=== PATIENT | female | born 1975 | race American Indian/Alaskan Native ===

== ENCOUNTER 2016-11-14 09:21 | Emergency (ER) | payer SELFPAY ==
[2016-11-14] MEDS ORDERED: NORCO 7.5/325 PO ONE (14:17)
[2016-11-14] MEDS ORDERED: TORADOL IM ONE (14:17)
[2016-11-14] MEDS ORDERED: FLEXERIL PO ONE (14:17)
[2016-11-14 15:30] VITALS: BP 124/72
--- NOTE | 2016-11-14 15:33 | XRay Report ---
CERVICAL SPINE, 3 views: History: Neck pain. AP and lateral views of the cervical spine were obtained. There is anatomic alignment, and the disc spaces are well maintained. There is no evidence of fracture or subluxation. There is loss of the normal cervical lordotic curve suggestive of muscle spasm. The prevertebral soft tissues are within normal limits. IMPRESSION: Loss of cervical lordosis suggesting muscle spasm vs. variation in patient positioning. Clinical correlation is advised. Otherwise negative cervical spine.
--- NOTE | 2016-11-14 16:32 | Emergency Department Report ---
Entered by YASHIRA MCMAHON, acting as scribe for MARCIANO ROGERS PA. ED Neck Pain/Injury HPI - General Chief Complaint: Neck Pain/Injury Stated Complaint: STIFF NECK/PAIN Time Seen by Provider: 11/14/16 12:16 Source: patient Mode of arrival: Ambulatory Limitations: No Limitations - History of Present Illness Initial Comments: 41 year old with PMHx of asthma c/o of sharp left neck pain that started yesterday. Patient stated that she "slept on it wrong," after bedtime but denies trauma, falling, or injuries to the neck. Patient reports that she has been sleeping on an air mattress for the past 3 days. Pain is aggravated while ambulating and alleviated with nothing. She denies fever, chills, N/V, and SOB. Patient is not and LMP was 1 week ago. MD Complaint: neck pain Onset/Timin -: days(s) Place: home Severity: mild Severity scale (0 -10): 4 Quality: sharp Consistency: constant Improves With: none, remaining still Worsens With: movement of neck Context: turning/bending Associated Symptoms: denies: headache, fever, numbness, tingling, weakness, difficulty walking, swollen glands, nausea, vomiting Treatments Prior to Arrival: none - Related Data Previous Rx's Medication Instructions Recorded Last Taken Type Naproxen Sodium (Nf) [Anaprox Ds 550 mg PO BID #14 tablet 04/05/14 Unknown Rx (Nf)] Ketorolac [Toradol] 10 mg PO Q6H PRN #20 tablet 11/14/16 Unknown Rx methOCARBAMOL [Robaxin TAB] 500 mg PO BID #30 tab 11/14/16 Unknown Rx Allergies Allergy/AdvReac Type Severity Reaction Status Date / Time morphine AdvReac Vomiting Verified 11/14/16 09:29 ED Review of Systems Comment: All other systems reviewed and negative Constitutional: denies: chills, diaphoresis, fever, weakness Eyes: denies: eye pain, eye discharge ENT: denies: ear pain, throat pain, dental pain Respiratory: denies: cough, shortness of breath, wheezing Cardiovascular: denies: chest pain, palpitations Endocrine: denies: excessive sweating Gastrointestinal: denies: abdominal pain, nausea, vomiting Genitourinary: denies: urgency, dysuria Musculoskeletal: arthralgia (left sided neck pain). denies: back pain, joint swelling Skin: denies: rash, lesions Neurological: denies: headache, weakness, numbness, paresthesias, confusion, abnormal gait, vertigo Psychiatric: denies: anxiety, depression Hematological/Lymphatic: denies: easy bleeding ED Past Medical Hx - Past Medical History Previous Medical History?: Yes Hx Asthma: Yes - Surgical History Past Surgical History?: Yes Additional Surgical History: Left Fallopian Tube Removed - Social History Smoking Status: Never Smoker Substance Use Type: None - Medications Home Medications: Home Medications Medication Instructions Recorded Confirmed Last Taken Type Naproxen Sodium (Nf) [Anaprox Ds 550 mg PO BID #14 tablet 04/05/14 Unknown Rx (Nf)] Ketorolac [Toradol] 10 mg PO Q6H PRN #20 tablet 11/14/16 Unknown Rx methOCARBAMOL [Robaxin TAB] 500 mg PO BID #30 tab 11/14/16 Unknown Rx ED Physical Exam - General Limitations: No Limitations General appearance: alert, in no apparent distress - Head Head exam: Present: atraumatic, normocephalic - Eye Eye exam: Present: normal appearance, PERRL, EOMI Pupils: Present: normal accommodation - ENT ENT exam: Present: normal exam, normal orophraynx, mucous membranes moist, normal external ear exam - Neck Neck exam: Present: normal inspection, tenderness (left sided tenderness). Absent: meningismus, full ROM, lymphadenopathy (left neck), thyromegaly - Respiratory Respiratory exam: Present: normal lung sounds bilaterally. Absent: respiratory distress, wheezes (ROM limited by pain), stridor - Cardiovascular Cardiovascular Exam: Present: regular rate, normal rhythm, normal heart sounds - GI/Abdominal GI/Abdominal exam: Present: soft, normal bowel sounds. Absent: distended, tenderness, guarding - Extremities Exam Extremities exam: Present: normal inspection, full ROM - Back Exam Back exam: Present: normal inspection, full ROM. Absent: tenderness - Neurological Exam Neurological exam: Present: alert, oriented X3, normal gait - Psychiatric Psychiatric exam: Present: normal affect, normal mood - Skin Skin exam: Present: warm, dry, intact, normal color. Absent: rash ED Course Vital Signs 11/14/16 11/14/16 09:30 15:29 Temperature 98.1 F 98.5 F Pulse Rate 81 67 Respiratory 20 18 Rate Blood Pressure 107/72 Blood Pressure 124/72 [Left] O2 Sat by Pulse 100 100 Oximetry ED Medical Decision Making - Radiology Data Radiology results: report reviewed xr cspine loss of cervical lordosis suggesting muscle spasm. - Medical Decision Making 41 year old female presents to ED with neck pain after sleeping. patient denies n/v, fever, trauma, headache, LOC, syncope. patient has observed ambulatory normal gait. ED Disposition Clinical Impression: Neck muscle spasm Disposition: DC-01 TO HOME OR SELFCARE Is pt being admited?: No Does the pt Need Aspirin: No Condition: Stable Instructions: Muscle Spasm (ED) Prescriptions: Ketorolac [Toradol] 10 mg PO Q6H PRN #20 tablet PRN Reason: Pain methOCARBAMOL [Robaxin TAB] 500 mg PO BID #30 tab Referrals: PRIMARY CARE, [Primary Care Provider] - 3-5 Days Forms: Work/School Release Form(ED) This documentation as recorded by the LISANDRO cary PEARL,accurately reflects the service I personally performed and the decisions made by ,MARCIANO ROGERS PA.
== END 2016-11-14 15:57 | disposition home or self-care (01) ==
LOC: ED 09:21
DX: M54.2 Cervicalgia (principal); M62.838 Other muscle spasm; J45.909 Unspecified asthma, uncomplicated; Z88.5 Allergy status to narcotic agent; X50.1XXA Overexertion from prolonged static or awkward postures, initial encounter; Y93.89 Activity, other specified; Y99.8 Other external cause status; Y92.89 Other specified places as the place of occurrence of the external cause
CPT/HCPCS: 72040; 81025; 96372; 99284; J1885

== ENCOUNTER 2017-01-04 21:07 | Emergency (ER) | payer SELFPAY ==
[2017-01-04 21:18] VITALS: BP 107/73
[2017-01-04] MEDS ORDERED: NARCAN 0.4 MG/1 ML ONE (22:50)
[2017-01-04] MEDS ORDERED: ZOFRAN ONE (22:53)
== END 2017-01-04 21:30 | disposition left against medical advice (07) ==
LOC: ED 21:07
DX: M54.9 Dorsalgia, unspecified (principal); Z53.21 Procedure and treatment not carried out due to patient leaving prior to being seen by health care provider
CPT/HCPCS: J2310; J2405

== ENCOUNTER 2017-04-06 11:11 | Emergency (ER) | payer OTHER ==
[2017-04-06 12:05] LABS: Basophils % (Auto) 0.4 % (0.0-1.8); Hematocrit 40.8 % (30.3-42.9); Mean Corpuscular HGB Conc 34 % (30-34); Mean Corpuscular Hemoglobin 32 pg (28-32); Mean Corpuscular Volume 92 fl (79-97); Platelet Count 392 K/mm3 (140-440); Red Blood Count 4.42 M/mm3 (3.65-5.03); Red Cell Distribution Width 14.2 % (13.2-15.2); White Blood Count 12.1 K/mm3 (4.5-11.0)
[2017-04-06 12:15] LABS: Alanine Aminotransferase 9 units/L (7-56); Albumin 4.6 g/dL (3.9-5); Albumin/Globulin Ratio 1.2 %; Alkaline Phosphatase 71 units/L (35-129); Anion Gap 20 mmol/L; BUN/Creatinine Ratio 10; Blood Urea Nitrogen 8 mg/dL (7-17); Calcium 10.1 mg/dL (8.4-10.2); Carbon Dioxide 26 mmol/L (22-30); Chloride 96.7 mmol/L (98-107); Glucose 120 mg/dL (65-100); Lipase 18 units/L (13-60); Potassium 3.3 mmol/L (3.6-5.0); Sodium 139 mmol/L (137-145); Total Protein 8.5 g/dL (6.3-8.2)
[2017-04-06 13:39] LABS: Bacteria,Urine 1+ /HPF (Negative); Mucus,Urine 2+ /HPF
[2017-04-06] MEDS ORDERED: ZOFRAN IV ONE (13:39)
[2017-04-06] MEDS ORDERED: DILAUDID IV ONE (13:40)
[2017-04-06] MEDS ORDERED: NACL 0.9% 1000 ML 1,000 ML IV ONE (13:40)
[2017-04-06 13:47] LABS: Bilirubin,Urine NEG (Negative); Blood,Urine SM (Negative); Ketones,Urine TR mg/dL (Negative); Leukocyte Esterase,Urine SM (Negative); Nitrite,Urine NEG (Negative); Urobilinogen,Urine < 2.0 mg/dL (<2.0)
[2017-04-06] MEDS ORDERED: NACL ONE ×2 (14:19→15:31)
--- NOTE | 2017-04-06 14:49 | Emergency Department Report ---
ED Abdominal Pain HPI - General Chief Complaint: Chest Pain Stated Complaint: CHEST PAIN Time Seen by Provider: 04/06/17 13:43 Source: patient Mode of arrival: Ambulatory Limitations: No Limitations - History of Present Illness Initial Comments: 42-year-old female presents with complaint of worsening abdominal pain 3 days. Patient is visibly distressed clutching her stomach states that she has not had a bowel movement in 3 days. Denies dysuria denies fever or chills does state that she has been nauseous and vomiting. Patient is awake alert and oriented 3. Patient also states she has had chest pain which is slightly worse when she takes a deep breath. Patient denies current palpitations but does state that her heart feels like it is racing. Denies being on control denies any history of PE. Denies dysuria or increased urinary frequency. MD Complaint: abdominal pain Onset/Timin -: days(s) Location: periumbilical, epigastric Radiation: epigastric, suprapubic Migration to: epigastric, suprapubic Severity: severe Severity scale (0 -10): 10 Quality: stabbing, aching, fullness, sharp Consistency: constant Worsens With: eating Associated Symptoms: nausea, vomiting, other (constipation) - Related Data LMP (females 10-50): this week Previous Rx's Medication Instructions Recorded Last Taken Type Naproxen Sodium (Nf) [Anaprox Ds 550 mg PO BID #14 tablet 04/05/14 Unknown Rx (Nf)] Ketorolac [Toradol] 10 mg PO Q6H PRN #20 tablet 11/14/16 Unknown Rx methOCARBAMOL [Robaxin TAB] 500 mg PO BID #30 tab 11/14/16 Unknown Rx Docusate Sodium [Colace] 100 mg PO BID PRN #16 capsule 04/06/17 Unknown Rx Magnesium Citrate [Citrate of 300 ml PO NOW #1 bottle 04/06/17 Unknown Rx Magnesia] Ondansetron [Zofran Odt] 4 mg PO Q8H PRN #10 tab.rapdis 04/06/17 Unknown Rx Allergies Allergy/AdvReac Type Severity Reaction Status Date / Time morphine AdvReac Vomiting Verified 11/14/16 09:29 ED Review of Systems ROS: Stated complaint: CHEST PAIN Other details as noted in HPI Constitutional: denies: chills, fever Eyes: denies: eye pain, eye discharge, vision change ENT: denies: ear pain, throat pain Respiratory: denies: cough, shortness of breath, wheezing Cardiovascular: chest pain (chest pain intermittently 3 days). denies: palpitations Endocrine: no symptoms reported Gastrointestinal: abdominal pain, constipation (3 days). denies: nausea, diarrhea Genitourinary: denies: urgency, dysuria, discharge Musculoskeletal: denies: back pain, joint swelling, arthralgia Skin: denies: rash, lesions Neurological: denies: headache, weakness, paresthesias Psychiatric: denies: anxiety, depression Hematological/Lymphatic: denies: easy bleeding, easy bruising ED Past Medical Hx - Past Medical History Hx Asthma: Yes - Surgical History Additional Surgical History: Left Fallopian Tube Removed - Social History Smoking Status: Never Smoker Substance Use Type: None - Medications Home Medications: Home Medications Medication Instructions Recorded Confirmed Last Taken Type Naproxen Sodium (Nf) [Anaprox Ds 550 mg PO BID #14 tablet 04/05/14 Unknown Rx (Nf)] Ketorolac [Toradol] 10 mg PO Q6H PRN #20 tablet 11/14/16 Unknown Rx methOCARBAMOL [Robaxin TAB] 500 mg PO BID #30 tab 11/14/16 Unknown Rx Docusate Sodium [Colace] 100 mg PO BID PRN #16 capsule 04/06/17 Unknown Rx Magnesium Citrate [Citrate of 300 ml PO NOW #1 bottle 04/06/17 Unknown Rx Magnesia] Ondansetron [Zofran Odt] 4 mg PO Q8H PRN #10 tab.rapdis 04/06/17 Unknown Rx ED Physical Exam - General Limitations: No Limitations General appearance: alert, in no apparent distress - Head Head exam: Present: atraumatic, normocephalic - Eye Eye exam: Present: normal appearance, PERRL, EOMI - ENT ENT exam: Present: mucous membranes moist - Neck Neck exam: Present: normal inspection - Respiratory Respiratory exam: Present: normal lung sounds bilaterally. Absent: respiratory distress - Cardiovascular Cardiovascular Exam: Present: regular rate, normal rhythm. Absent: systolic murmur, diastolic murmur, rubs, gallop - GI/Abdominal GI/Abdominal exam: Present: tenderness (some reproducible epigastric tenderness on palpation enzo-umbilical region), normal bowel sounds - Extremities Exam Extremities exam: Present: normal inspection - Back Exam Back exam: Present: normal inspection - Neurological Exam Neurological exam: Present: alert, oriented X3, CN II-XII intact, normal gait - Psychiatric Psychiatric exam: Present: normal affect, normal mood - Skin Skin exam: Present: warm, dry, intact, normal color. Absent: rash ED Course Vital Signs 04/06/17 04/06/17 04/06/17 11:28 13:45 17:59 Temperature 98.6 F Pulse Rate 114 H 81 Respiratory 18 18 Rate Blood Pressure 125/88 Blood Pressure 127/84 [Right] O2 Sat by Pulse 100 96 Oximetry ED Medical Decision Making - Lab Data Result diagrams: 04/06/17 11:43 04/06/17 11:43 - Medical Decision Making A/P: Chest pain, abdominal pain 1-CT Angio chest, CT abdomen and pelvis 2-d-dimer positive 3-EKG sinus 4- case reviewed and patient discharged by Dr. Sosa Critical care attestation.: If time is entered above; I have spent that time in minutes in the direct care of this critically ill patient, excluding procedure time. ED Disposition Clinical Impression: Chest pain Qualifiers: Chest pain type: unspecified Qualified Code(s): R07.9 - Chest pain, unspecified Abdominal pain Qualifiers: Abdominal location: upper abdomen, unspecified Qualified Code(s): R10.10 - Upper abdominal pain, unspecified Nausea & vomiting Qualifiers: Vomiting type: unspecified Vomiting Intractability: non-intractable Qualified Code(s): R11.2 - Nausea with vomiting, unspecified Constipation Qualifiers: Constipation type: unspecified constipation type Qualified Code(s): K59.00 - Constipation, unspecified Fibroid uterus Qualifiers: Uterine leiomyoma location: unspecified location Qualified Code(s): D25.9 - Leiomyoma of uterus, unspecified Ovarian cyst Qualifiers: Laterality: right Qualified Code(s): N83.201 - Unspecified ovarian cyst, right side Disposition: LEFT AGAINST MED ADVICE Is pt being admited?: No Does the pt Need Aspirin: No Condition: Stable Instructions: Chest Pain (ED), Ovarian Cyst (ED), Uterine Fibroids (ED), Constipation (ED), Acute Nausea and Vomiting (ED) Additional Instructions: Please follow up with a primary care physician in the next 2 days. I have given you a referral for a local cable television line technician, Dr. Kelsey. Return to the emergency Department with any worsening of her symptoms or any acute distress. Increase your oral rehydration. Prescriptions: Docusate Sodium [Colace] 100 mg PO BID PRN #16 capsule PRN Reason: Constipation Magnesium Citrate [Citrate of Magnesia] 300 ml PO NOW #1 bottle Ondansetron [Zofran Odt] 4 mg PO Q8H PRN #10 tab.rapdis PRN Reason: Nausea Referrals: MAGGIE RIOS JR, MD [Staff Physician] - 3-5 Days ILDEFONSO KELSEY MD [Staff Physician] - 3-5 Days PRIMARY CARE, [Primary Care Provider] - 3-5 Days Forms: AMA Form
--- NOTE | 2017-04-06 16:08 | XRay Report ---
FINAL REPORT PROCEDURE: XR CHEST 1V AP TECHNIQUE: Chest radiograph anteroposterior view. CPT 73833 HISTORY: chest pain COMPARISON: No prior studies are available for comparison. FINDINGS: Heart: Normal. Mediastinum/Vessels: Normal. Lungs/Pleural space: Normal. Bony thorax: No acute osseous abnormality. Life support devices: None. IMPRESSION: No acute cardiopulmonary abnormality.
--- NOTE | 2017-04-06 16:27 | Cat Scan Report ---
FINAL REPORT PROCEDURE: CT ABDOMEN PELVIS W CON TECHNIQUE: Computerized axial tomography of the abdomen and pelvis was performed after the IV injection of iodinated nonionic contrast. HISTORY: abdominal pain, worsening, epigastric COMPARISON: No prior studies are available for comparison. FINDINGS: Mild hypoventilatory changes are seen in the dependent portions of the lungs. Liver and spleen appear normal. The gallbladder and pancreas display no abnormalities. The adrenal glands and abdominal aorta are normal in size. 4.5 millimeter cyst is seen in the lower pole of the right kidney. Left kidney appears normal. Bladder appears normal. Enlarged fibroid filled uterus is seen. Large exophytic fibroid is suspected in the left side measuring 8.7 cm in greatest dimension. Several other exophytic fibroids are seen posteriorly. There is likely a 2 cm right ovarian cyst. There is no evidence of bowel obstruction or constipation. Possible changes of jejunitis or enteritis are seen. Normal appendix is seen. IMPRESSION: Possible changes of jejunitis or enteritis are seen. No evidence of bowel obstruction is seen. Enlarged fibroid filled uterus is seen, with several the fibroids appearing exophytic or pedunculated. 2 cm right ovarian cyst is suspected.
--- NOTE | 2017-04-06 16:30 | Cat Scan Report ---
FINAL REPORT PROCEDURE: CT ANGIO CHEST TECHNIQUE: Computerized tomographic angiography of the chest was performed after the IV injection of iodinated nonionic contrast including image processing. The image data was postprocessed using 2-dimensional multiplanar reformatted (MPR) and 3-dimensional (MIP and/or volume rendered) techniques. HISTORY: chest pain elevated D-dimer COMPARISON: Chest x-ray from the same day FINDINGS: Minimal hypoventilatory changes are seen in the left lung base. No pneumothorax or pleural effusion is seen. No mediastinal lymphadenopathy is seen. Heart and thoracic aorta are normal in size. There is no evidence of aortic dissection. No pulmonary embolus is seen. IMPRESSION: No significant abnormality is seen.
[2017-04-06] MEDS ORDERED: K-DUR PO ONE (16:50)
--- NOTE | 2017-04-06 17:27 | Emergency Department Report ---
ED Chest Pain HPI - General Chief Complaint: Chest Pain Stated Complaint: CHEST PAIN Time Seen by Provider: 04/06/17 13:43 Source: patient Mode of arrival: Ambulatory Limitations: No Limitations - History of Present Illness Initial Comments: This is a 42 year-old female presents to the emergency department with complaint of a 3 day history of some upper abdominal discomfort along with the inability to have a bowel movement or any flatus. Today she felt as if her chest and/or the breast tissue was "pulling" and she was having some discomfort in this area. She is also having some nausea and vomiting over the past few days. She has a past medical history of asthma. She denies any history of MT, CVA, PE/DVT. She tried some Ex-Lax and a Fleet enema without any relief. She is a tobacco smoker and occasionally uses marijuana. She does not have a primary care physician. No recent travel or sick contacts at home. Severity scale (0 -10): 10 - Related Data Previous Rx's Medication Instructions Recorded Last Taken Type Naproxen Sodium (Nf) [Anaprox Ds 550 mg PO BID #14 tablet 04/05/14 Unknown Rx (Nf)] Ketorolac [Toradol] 10 mg PO Q6H PRN #20 tablet 11/14/16 Unknown Rx methOCARBAMOL [Robaxin TAB] 500 mg PO BID #30 tab 11/14/16 Unknown Rx Docusate Sodium [Colace] 100 mg PO BID PRN #16 capsule 04/06/17 Unknown Rx Magnesium Citrate [Citrate of 300 ml PO NOW #1 bottle 04/06/17 Unknown Rx Magnesia] Ondansetron [Zofran Odt] 4 mg PO Q8H PRN #10 tab.rapdis 04/06/17 Unknown Rx Allergies Allergy/AdvReac Type Severity Reaction Status Date / Time morphine AdvReac Vomiting Verified 11/14/16 09:29 Heart Score - HEART Score History: Slightly suspicious EKG: Normal Age: < 45 Risk factors: 1-2 risk factors Troponin: < normal limit HEART Score: 1 - Critical Actions Critical Actions: 0-3 pts:0.9-1.7%risk of adverse cardiac event.Candidate for discharge ED Review of Systems ROS: Stated complaint: CHEST PAIN Other details as noted in HPI Comment: All other systems reviewed and negative Constitutional: denies: chills, fever Eyes: denies: eye pain, eye discharge, vision change ENT: denies: ear pain, throat pain Respiratory: denies: cough, wheezing Cardiovascular: chest pain. denies: palpitations Gastrointestinal: abdominal pain, nausea, vomiting Genitourinary: denies: urgency, dysuria, discharge Musculoskeletal: denies: back pain, joint swelling, arthralgia Skin: denies: rash, lesions Neurological: denies: headache, weakness, paresthesias ED Past Medical Hx - Past Medical History Hx Asthma: Yes - Surgical History Additional Surgical History: Left Fallopian Tube Removed - Social History Smoking Status: Never Smoker Substance Use Type: None - Medications Home Medications: Home Medications Medication Instructions Recorded Confirmed Last Taken Type Naproxen Sodium (Nf) [Anaprox Ds 550 mg PO BID #14 tablet 04/05/14 Unknown Rx (Nf)] Ketorolac [Toradol] 10 mg PO Q6H PRN #20 tablet 11/14/16 Unknown Rx methOCARBAMOL [Robaxin TAB] 500 mg PO BID #30 tab 11/14/16 Unknown Rx Docusate Sodium [Colace] 100 mg PO BID PRN #16 capsule 04/06/17 Unknown Rx Magnesium Citrate [Citrate of 300 ml PO NOW #1 bottle 04/06/17 Unknown Rx Magnesia] Ondansetron [Zofran Odt] 4 mg PO Q8H PRN #10 tab.rapdis 04/06/17 Unknown Rx ED Physical Exam - General Limitations: No Limitations - Other Other exam information: GENERAL: The patient is well-developed well-nourished. HENT: Normocephalic. Atraumatic. Patient has moist mucous membranes. EYES: Extraocular motions are intact. Pupils equal reactive to light bilaterally. NECK: Supple. Trachea is midline. CHEST/LUNGS: Clear to auscultation. There is no respiratory distress noted. HEART/CARDIOVASCULAR: Regular. There is no tachycardia. There is no gallop rub or murmur. ABDOMEN: Abdomen is soft, nontender. No guarding or tenderness. Patient has normal bowel sounds. There is no abdominal distention. SKIN: There is no rash. There is no edema. There is no diaphoresis. NEURO: The patient is awake, alert, and oriented. The patient is cooperative. The patient has no focal neurologic deficits. The patient has normal speech. MUSCULOSKELETAL: There is no tenderness or deformity. There is no limitation range of motion. There is no evidence of acute injury. ED Course Vital Signs 04/06/17 04/06/17 04/06/17 11:28 13:45 17:59 Temperature 98.6 F Pulse Rate 114 H 81 Respiratory 18 18 Rate Blood Pressure 125/88 Blood Pressure 127/84 [Right] O2 Sat by Pulse 100 96 Oximetry SIRIA score - Siria Score Age > 65: (0) No Aspirin use within the Past 7 Days: (0) No 3 or more CAD Risk Factors: (0) No 2 or more Angina events in past 24 hrs: (0) No Known CAD with more than 50% Stenosis: (0) No Elevated Cardiac Markers: (0) No ST Deviation Greater than 0.5mm: (0) No SIRIA Score: 0 ED Medical Decision Making - Lab Data Result diagrams: 04/06/17 11:43 04/06/17 11:43 - EKG Data -: EKG Interpreted by Me EKG shows normal: sinus rhythm, axis, intervals, QRS complexes, ST-T waves Rate: normal - EKG Data When compared to previous EKG there are: previous EKG unavailable Interpretation: normal EKG - Radiology Data Radiology results: report reviewed, image reviewed interpreted by me: Chest x-ray does not show any acute process. There are no pleural effusions, obvious pneumonia and there is no pneumothorax. PROCEDURE: CT ABDOMEN PELVIS W CON TECHNIQUE: Computerized axial tomography of the abdomen and pelvis was performed after the IV injection of iodinated nonionic contrast. HISTORY: abdominal pain, worsening, epigastric COMPARISON: No prior studies are available for comparison. FINDINGS: Mild hypoventilatory changes are seen in the dependent portions of the lungs. Liver and spleen appear normal. The gallbladder and pancreas display no abnormalities. The adrenal glands and abdominal aorta are normal in size. 4.5 millimeter cyst is seen in the lower pole of the right kidney. Left kidney appears normal. Bladder appears normal. Enlarged fibroid filled uterus is seen. Large exophytic fibroid is suspected in the left side measuring 8.7 cm in greatest dimension. Several other exophytic fibroids are seen posteriorly. There is likely a 2 cm right ovarian cyst. There is no evidence of bowel obstruction or constipation. Possible changes of jejunitis or enteritis are seen. Normal appendix is seen. IMPRESSION: Possible changes of jejunitis or enteritis are seen. No evidence of bowel obstruction is seen. Enlarged fibroid filled uterus is seen, with several the fibroids appearing exophytic or pedunculated. 2 cm right ovarian cyst is suspected. PROCEDURE: CT ANGIO CHEST TECHNIQUE: Computerized tomographic angiography of the chest was performed after the IV injection of iodinated nonionic contrast including image processing. The image data was postprocessed using 2-dimensional multiplanar reformatted (MPR) and 3-dimensional (MIP and/or volume rendered) techniques. HISTORY: chest pain elevated D-dimer COMPARISON: Chest x-ray from the same day FINDINGS: Minimal hypoventilatory changes are seen in the left lung base. No pneumothorax or pleural effusion is seen. No mediastinal lymphadenopathy is seen. Heart and thoracic aorta are normal in size. There is no evidence of aortic dissection. No pulmonary embolus is seen. IMPRESSION: No significant abnormality is seen. - Medical Decision Making This patient originally was started off in triage by the mid-level provider and apparently had some diaphoresis and there was concern. However after 1 dose of Zofran and 1 dose of pain medication, the patient is feeling greatly improved and asking for discharge home. Labs within mostly unremarkable. First troponin was negative. She had a slightly elevated and equivocal d-dimer so a CT angiography of the chest was done that did not show any pulmonary was a more any other acute process. The patient was also complaining of abdominal pain for the past few days, a CT of the abdomen and pelvis was done that did not show any etiology of her symptoms. However there are some incidental findings including multi-fibroid uterus, right ovarian cyst and some possible enteritis but no signs of any abscess or bacterial infection. She did present slightly tachycardic at first but by the time I'm seeing her she has normal stable vitals including being afebrile. Her main complaint at this time is that she is constipated. The plan was going to be for the patient to have a second troponin and if that was negative that she would be discharged home with appropriate treatment. However she does not want to wait for any further testing or evaluation. For this reason, since I am wanting to get the second troponin, the patient signed out AGAINST MEDICAL ADVICE. I did provide her some resources for referrals as well as some medication prescriptions for her increased stool volume. She has been encouraged to follow up with cardiology, primary care and to return to the emergency Department with any worsening of her symptoms or any acute distress. - Differential Diagnosis constipation, gastroenteritis, colitis, cholecystitis, MT, PE Critical Care Time: No Critical care attestation.: If time is entered above; I have spent that time in minutes in the direct care of this critically ill patient, excluding procedure time. ED Disposition Clinical Impression: Chest pain Qualifiers: Chest pain type: unspecified Qualified Code(s): R07.9 - Chest pain, unspecified Abdominal pain Qualifiers: Abdominal location: upper abdomen, unspecified Qualified Code(s): R10.10 - Upper abdominal pain, unspecified Nausea & vomiting Qualifiers: Vomiting type: unspecified Vomiting Intractability: non-intractable Qualified Code(s): R11.2 - Nausea with vomiting, unspecified Constipation Qualifiers: Constipation type: unspecified constipation type Qualified Code(s): K59.00 - Constipation, unspecified Fibroid uterus Qualifiers: Uterine leiomyoma location: unspecified location Qualified Code(s): D25.9 - Leiomyoma of uterus, unspecified Ovarian cyst Qualifiers: Laterality: right Qualified Code(s): N83.201 - Unspecified ovarian cyst, right side Disposition: LEFT AGAINST MED ADVICE Is pt being admited?: No Condition: Stable Instructions: Chest Pain (ED), Ovarian Cyst (ED), Uterine Fibroids (ED), Constipation (ED), Acute Nausea and Vomiting (ED) Additional Instructions: Please follow up with a primary care physician in the next 2 days. 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 Kelsey. Return to the emergency Department with any worsening of her symptoms or any acute distress. Increase your oral rehydration. Prescriptions: Docusate Sodium [Colace] 100 mg PO BID PRN #16 capsule PRN Reason: Constipation Magnesium Citrate [Citrate of Magnesia] 300 ml PO NOW #1 bottle Ondansetron [Zofran Odt] 4 mg PO Q8H PRN #10 tab.rapdis PRN Reason: Nausea Referrals: PRIMARY CARE, [Primary Care Provider] - 3-5 Days ILDEFONSO KELSEY MD [Staff Physician] - 3-5 Days MAGGIE RIOS JR, MD [Staff Physician] - 3-5 Days Forms: AMA Form Time of Disposition: 17:29
[2017-04-06] MEDS ORDERED: NACL 0.9% 1000 ML 1,000 ML ONE (17:45)
[2017-04-06 18:00] VITALS: BP 127/84
== END 2017-04-06 17:59 | disposition left against medical advice (07) ==
LOC: ED 11:11
DX: K59.00 Constipation, unspecified (principal); D25.9 Leiomyoma of uterus, unspecified; N83.201 Unspecified ovarian cyst, right side; R07.89 Other chest pain; F17.210 Nicotine dependence, cigarettes, uncomplicated; F12.90 Cannabis use, unspecified, uncomplicated; Z88.6 Allergy status to analgesic agent
CPT/HCPCS: 36415; 71010; 71275; 74177; 80053; 81001; 81025; 83690; 84484; 85025; 85379; 93005; 93010; 96361; 96374; 96375; 99285; J1170; J2405; J7030; Q9967